=== PATIENT | male | born 1945 | race Two or more races ===

== ENCOUNTER 2017-09-20 07:58 | Inpatient (IN) | payer MEDICARE, OTHER ==
[2017-09-20] MEDS ORDERED: NS 0.9% 1000 ML* 2,000 ML IV ONE (08:13)
[2017-09-20] MEDS ORDERED: Ondansetron INJ* 2 MG/ML VIAL IV ONE (08:43)
[2017-09-20] MEDS ORDERED: LORazepam INJ* 2 MG/ML 1 ML VIAL IV PUSH ONE ×3 (08:43→16:35)
[2017-09-20 08:46] LABS: ABS Basophils 0 10^3/ul (0-0.2); ABS Eosinophils 0 10^3/ul (0-0.6); ABS Lymphocytes 0.7 10^3/ul (1.0-4.8); ABS Monocytes 1.6 10^3/ul (0-0.8); ABS Neutrophils 13.3 10^3/ul (1.5-7.7); ABS Nucleated RBC 0.01 10^3/ul; Eosinophil % 0 % (0-6); Hematocrit 37 % (42-52); Hemoglobin 12.6 g/dl (14.0-18.0); Lymphocyte % 4.7 % (25-47); Mean Corpuscular HGB Conc 34 g/dl (31-36); Mean Corpuscular Hemoglobin 29 pg (27-31); Mean Corpuscular Volume 86 fL (80-94); Nucleated Red Blood Cells % 0.1; Red Blood Count 4.31 10^6/ul (4.0-5.4); Red Cell Distribution Width 14 % (10.5-15); White Blood Count 15.7 10^3/ul (3.5-10.8)
[2017-09-20 08:58] LABS: EGFR Non-African American 39.7 (>60)
[2017-09-20] MEDS ORDERED: Magnesium Sulfate 1 GM IV* 1 GM/100 ML BAG IV ONE (09:35)
[2017-09-20] MEDS: KCL 10 MEQ/50 ML IVPREMIX* 10 MEQ/50 ML BAG IV SCH ×3 (10:35→14:36)
--- NOTE | 2017-09-20 10:41 | RAD ---
Indication: Weakness and fever. Comparison: No relevant prior exams available on the [facility] PACS for comparison. Technique: Upright AP 1000 hours Report: No pulmonary infiltrate, pleural effusion, or pneumothorax. The heart, pulmonary vasculature, and mediastinal contours are unremarkable. Negative for free air beneath the diaphragm. IMPRESSION: No evidence for acute intrathoracic disease.
[2017-09-20] MEDS ORDERED: NS 0.9% 1000 ML* 1,000 ML IV ONE (10:57)
[2017-09-20] MEDS ORDERED: Magnesium Sulf 4 GM/100 ML IV* 4,000 MG/100 ML BAG IVPB ONE (12:44)
[2017-09-20] MEDS ORDERED: Ondansetron INJ* 2 MG/ML VIAL IV PRN (13:07)
[2017-09-20] MEDS ORDERED: Diphenoxylat/Atrop 2.5-0.025M* 1 TAB PO PRN (14:04)
[2017-09-20] MEDS ORDERED: Oxybutynin XL TAB* 5 MG PO PRN (14:04)
[2017-09-20] MEDS ORDERED: Dextrose 50% Syringe 50 ML* 25 GM/50 ML SYRINGE IV PUSH PRN (14:05)
[2017-09-20 14:23] LABS: RBC Parasite Smear No Parasites Seen (No Parasite)
--- NOTE | 2017-09-20 14:54 | ED ---
Marco Bonner Tecjoon, scribed for Guillaume Lopez MD on 09/20/17 at 0853 . Complex/Multi-Sys Presentation - HPI Summary HPI Summary: This patient is a 72 year old BIBA to [facility] accompanied by with a chief complaint of general illness since 2 weeks ago. Patient states that he has nausea and vomiting and has completely lost his appetite. As a result, at time of exam, patient is dehydrated. The patient additionally reports overall bodyaches, weakness and constant hiccupping since last night. The pain is rated 3/10 in severity. Symptoms aggravated by nothing. Symptoms alleviated by nothing. 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 Patient denies abd pain specifically. Patient has a hx of diabetes and was not tested for malaria after their visit to [facility]. - History Of Current Complaint Chief Complaint: EDGeneral Hx Obtained From: Patient Onset/Duration: Gradual Onset, Still Present Timing: Constant Severity Currently: Mild Severity Initially: Mild Location: Pain At: - overall bodyache Aggravating Factor(s): nothing Alleviating Factor(s): nothing Associated Signs And Symptoms: Positive: Other - nausea, vomiting, bodyaches, weakness and constant hiccupping. Negative: Abdominal Pain - Allergies/Home Medications Allergies/Adverse Reactions: Allergies Allergy/AdvReac Type Severity Reaction Status Date / Time Benzalkonium Chloride Allergy Unknown Verified 09/20/17 08:07 [From Lumigan] Reaction Details Bimatoprost [From Lumigan] Allergy Unknown Verified 09/20/17 08:07 Reaction Details Sulfa Antibiotics Allergy Unknown Verified 09/20/17 08:07 Reaction Details Home Medications: Home Medications Ketoconazole 2 % CREAM (NF) [Nizoral 2% CREAM (NF)] 1 applic TOPICAL BID PRN 10/07 [History Confirmed 09/20/17] Psyllium SHELLY* [Metamucil SHELLY*] 1 packet PO DAILY 09/20/17 [History Confirmed 10/07] Rosuvastatin (NF) [Crestor (NF)] 20 mg PO DAILY 09/20/17 [History Confirmed 10/07] Tramadol HCl [Ultram] 50 mg PO Q6H PRN 09/20/17 [History Confirmed 09/20/17] glipiZIDE TAB* [Glucotrol TAB*] 5 mg PO DAILY 09/20/17 [History Confirmed ] metFORMIN* [Glucophage 850 MG TAB *] 850 mg PO BID 09/20/17 [History Confirmed 09/20/17] PMH/Surg Hx/FS Hx/Imm Hx Previously Healthy: No Endocrine/Hematology History: Reports: Hx Diabetes Opthamlomology History: Denies: Hx Legally Blind EENT History: Denies: Hx Deafness Psychiatric History: Reports: Hx Anxiety Infectious Disease History: No Infectious Disease History: Reports: Traveled Outside the [place] in Last 30 Days - [place] and [place] - Family History Known Family History: Positive: Hypertension, Diabetes - Social History Lives: With Family Alcohol Use: None Hx Substance Use: No Substance Use Type: Reports: None Hx Tobacco Use: No Smoking Status (MU): Never Smoked Tobacco Review of Systems Positive: Other - hiccuping. Negative: Fever Positive: Vomiting, Nausea. Negative: Abdominal Pain Positive: Myalgia - bodyaches Positive: Weakness All Other Systems Reviewed And Are Negative: Yes Physical Exam - Summary Physical Exam Summary: VITAL SIGNS: Reviewed. GENERAL: Patient is an elderly MALE who is lying in the stretcher. Patient is dehydrated. Patient is not in any acute respiratory distress. HEAD AND FACE: Normocephalic EYES: PERRLA, EOMI x 2. EARS: Hearing grossly intact. MOUTH: Oropharynx within normal limits. NECK: Supple, trachea is midline, no adenopathy, no JVD, no carotid bruit. CHEST: Symmetric, no tenderness at palpation LUNGS: Clear to auscultation bilaterally. No wheezing or crackles. CVS: Regular rate and rhythm, S1 and S2 present, no murmurs or gallops appreciated. ABDOMEN: Soft, non-tender. Bowel sounds are normal. No abdominal abnormal pulsations. EXTREMITIES: Full ROM in all major joints, no edema, no cyanosis or clubbing. NEURO: Alert and oriented x 3. No acute neurological deficits. Speech is normal and follows commands. SKIN: Dry and warm Triage Information Reviewed: Yes Vital Signs On Initial Exam: Initial Vitals Temp Pulse Resp BP Pulse Ox 99.0 F 125 23 115/81 95 09/20/17 08:03 09/20/17 08:03 09/20/17 08:03 09/20/17 08:03 09/20/17 08:03 Vital Signs Reviewed: Yes - Nancy Coma Scale Coma Scale Total: 15 Diagnostics - Vital Signs Vital Signs Temp Pulse Resp BP Pulse Ox 09/20/17 08:34 99.2 F 123 24 98/74 93 09/20/17 08:03 99.0 F 125 23 115/81 95 - Laboratory Lab Results: Lab Results 09/20/17 09/20/17 09/20/17 Range/Units 08:30 08:30 08:30 WBC 15.7 H (3.5-10.8) 10^3/ul RBC 4.31 (4.0-5.4) 10^6/ul Hgb 12.6 L (14.0-18.0) g/dl Hct 37 L (42-52) % MCV 86 (80-94) fL MCH 29 (27-31) pg MCHC 34 (31-36) g/dl RDW 14 (10.5-15) % Plt Count (150-450) 10^3/ul MPV [employer] Engine 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 Neut % (Auto) 84.8 H (38-83) % Lymph % (Auto) 4.7 L (25-47) % [place] % (Auto) 10.3 H (1-9) % Eos % (Auto) 0 (0-6) % Baso % (Auto) 0.2 (0-2) % Absolute Neuts (auto) 13.3 H (1.5-7.7) 10^3/ul Absolute Lymphs (auto) 0.7 L (1.0-4.8) 10^3/ul Absolute Monos (auto) 1.6 H (0-0.8) 10^3/ul Absolute Eos (auto) 0 (0-0.6) 10^3/ul Absolute Basos (auto) 0 (0-0.2) 10^3/ul Absolute Nucleated RBC 0.01 10^3/ul Nucleated RBC % 0.1 Smear Path Review Pending Sodium 127 L (133-145) mmol/L Potassium 3.2 L (3.5-5.0) mmol/L Chloride 88 L (101-111) mmol/L Carbon Dioxide 28 (22-32) mmol/L Anion Gap 11 (2-11) mmol/L BUN 24 (6-24) mg/dL Creatinine 1.70 H (0.67-1.17) mg/dL Est GFR ( Amer) 51.1 (>60) Est GFR (Non-Af Amer) 39.7 (>60) BUN/Creatinine Ratio 14.1 (8-20) Glucose 210 H (70-100) mg/dL Lactic Acid 1.7 (0.5-2.0) mmol/L Calcium 9.1 (8.6-10.3) mg/dL Magnesium 1.2 L (1.9-2.7) mg/dL Total Bilirubin 1.70 H (0.2-1.0) mg/dL AST 27 (13-39) U/L ALT 38 (7-52) U/L Alkaline Phosphatase 107 H (34-104) U/L Troponin I 0.04 H* (<0.04) ng/mL Total Protein 6.7 (6.4-8.9) g/dL Albumin 3.1 L (3.2-5.2) g/dL Globulin 3.6 (2-4) g/dL Albumin/Globulin Ratio 0.9 L (1-3) Blood Parasite Screen Pending Result Diagrams: 09/20/17 08:30 09/20/17 08:30 Lab Statement: Any lab studies that have been ordered have been reviewed, and results considered in the medical decision making process. - Radiology CXR Xray Interpretation: No Acute Changes - IMPRESSION: No evidence for acute intrathoracic disease. ED physician has reviewed this radiology report. Radiology Interpretation Completed By: Radiologist - EKG 08 Cardiac Rate: Tachycardia EKG Rhythm: Sinus Tachycardia - 115 BPM EKG Interpretation: Sinus tachycardia (115 BPM), no ST elevation. Complex Multi-Symp Course/Dx Course Of Treatment: This patient is a 72 year old BIBA to [facility] accompanied by with a chief complaint of general illness since 2 weeks ago. Patient states that he has nausea and vomiting and has completely lost his appetite. As a result, at time of exam, patient is dehydrated. The patient additionally reports overall bodyaches, weakness and constant hiccupping since last night. The pain is rated 3/10 in severity. Symptoms aggravated by nothing. Symptoms alleviated by nothing. 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 Patient denies abd pain specifically. Patient has a hx of diabetes and was not tested for malaria after their visit to [facility]. An EKG, taken 821, reveals sinus tachycardia (115 BPM), no ST elevation. CXR reveals, per radiologist, IMPRESSION: No evidence for acute intrathoracic disease. ED physician has reviewed this radiology report. Bloodwork Obtained. Malaria screening obtained. In the ED course the patient was given IVF for hydration since patient is severly dehydrated. He was given Ativan for hiccups. He was also given Zofran, Magnesium sulfate, Potassium chloride. Patient has lost 11 lbs in 10 days and still having intractable nause and unable to tolerate PO. We discussed patient care with Dr. Howard (Hospitalist) at 1122 and they agreed to admit the patient. Patient will be diagnosed with dehydration, renal insufficiency, intractable nausea, weight loss and will we admitted to the hospitalist. The patient is agreeable with this plan. - Diagnoses Differential Diagnoses/HQI/PQRI: Urinary Tract Infection Provider Diagnoses: Dehydration, Weight loss, Intractable nausea and vomiting, Renal insufficiency - Physician Notifications Discussed Care Of Patient With: Heather Howard - Hospitalist Time Discussed With Above Provider: 11:22 - We discussed patient care with Dr. Howard (Hospitalist) at 1122 and they agreed to admit the patient. Discharge - Discharge Plan Condition: Stable Disposition: ADMITTED TO [facility] documentation as recorded by the Marco marrero Tecjoon accurately reflects the service I personally performed and the decisions made by John linares Walter, MD.
[2017-09-20] MEDS ORDERED: Potassium Chlor TAB* 20 MEQ TAB.ER PO ONE (15:00)
[2017-09-20] MEDS: NS 0.9% 1000 ML* 1,000 ML IV SCH ×2 (16:50→22:35)
[2017-09-20] MEDS: Heparin VIAL(*) 5000 UNITS/ML VIAL (FIVE THOUSAND) SUBCUT SCH ×2 (17:43→20:37)
[2017-09-20] MEDS: Insulin LISPRO* 1 UNITS UNIT SUBCUT SCH (17:50)
[2017-09-20 19:05] LABS: Urine Appearance Clear; Urine Blood 1+ (Negative); Urine Color Yellow; Urine Ketones Negative (Negative); Urine Protein Negative (Negative); Urine Specific Gravity 1.005 (1.010-1.030); Urine Urobilinogen Positive (Negative)
--- NOTE | 2017-09-20 19:32 | RAD ---
INDICATION: Dehydration. Elevated troponin. Clinical concern for potential liver abscess. COMPARISON: December 13, 2008 RIGHT upper quadrant ultrasound. TECHNIQUE: Multidetector CT images were obtained from the lung bases to the ischial tuberosities. Evaluation of the viscera is limited without IV contrast. Multiplanar reformation. REPORT: Small calcified granuloma at the LEFT lung base. Minimal bibasilar dependent atelectasis. Post cholecystectomy. Negative for biliary dilatation. No CT abnormality of the unenhanced liver, pancreas, spleen. Negative for CT abnormality of the upper GI, small bowel, or medially extending appendix. Moderate colonic diverticulosis primarily involving the sigmoid colon without findings of diverticulitis. Negative for ascites, free air, hernias. Normal adrenal glands. Few small renal cortical cysts with dominant 2 cm cyst lower pole of the LEFT kidney. No suspicious focal renal lesions, urolithiasis, or hydronephrosis. No abnormality along the course of the nondilated ureters or distended urinary bladder. Unremarkable visualized male urogenital structures. Negative for lymphadenopathy. Mild atherosclerotic calcification of normal diameter abdominal aorta and iliac arteries. 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 Fusiform aneurysm of the celiac axis beginning approximate 0.5 cm beyond the ostium measuring up to 1.1 cm diameter. Negative for retroperitoneal hematoma. Negative for suspicious osseous lesions. IMPRESSION: 1. No evidence for hepatic abscess within limits of noncontrast CT. 2. Post cholecystectomy. 3. Colonic diverticulosis without findings of diverticulitis. 4. Negative for obstructive uropathy. 5. 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 Fusiform aneurysm of the celiac axis beginning approximate 0.5 cm beyond the ostium measuring up to 1.1 cm diameter. Negative for retroperitoneal hematoma.
[2017-09-20] MEDS: LORazepam TAB(*) 1 MG PO PRN (20:03)
--- NOTE | 2017-09-20 20:04 | HP ---
CC: Dr. Geraldine Jaeger. * HISTORY AND PHYSICAL: DATE OF ADMISSION: 09/20/17 PRIMARY CARE PROVIDER: Dr. Geraldine Jaeger. ATTENDING PHYSICIAN: Heather Howard DO * (dictated by Genie Khan NP). CHIEF COMPLAINT: General illness for approximately 2 weeks since returning from a trip to [facility], [employer] and [facility]. HISTORY OF PRESENT ILLNESS: Mr. West is a 72-year-old male with past medical history significant for diabetes mellitus, anxiety and IBS who presents to the emergency room with complaints of 2 weeks of illness. The patient reports that he returned from his trip and was initially feeling well for the first week, he returned to work. After the first week, he started developing fevers and not feeling well. He was taking Advil for his fevers. He reports seeing his primary care provider and then again seeing his primary care provider on 09/17/17 where he was told he was dehydrated and to try to get himself hydrated at home. The patient reports flu-like symptoms that have worsened since he saw his primary care provider on 09/17/17 and he reports hiccups starting last night that have not stopped. He reports generalized body aches, loss of appetite, urinary incontinence last evening, fevers, anorexia. He denies any chest pain, shortness of breath, abdominal pain. He reports nausea, vomiting. He reports not being able to keep anything down. The patient tried to take his lorazepam to see if this helped with his symptoms and when it did not, he decided to present to the emergency room for further evaluation. While in the emergency room, the patient received Zofran, 2 L normal saline, Ativan and one of IV potassium. He had labs remarkable for hyponatremia with a sodium of 127. He also was found to have hypokalemia with a potassium of 3.2, hypomagnesium with a magnesium of 1.2. Also, he was also noted to have elevated LFTs and slightly elevated troponin of 0.04. He had an EKG showing sinus tachycardia. Chest x-ray showing no acute findings. The hospitalist were asked to evaluate the patient for admission. PAST MEDICAL HISTORY: 1. Diabetes mellitus. 2. Anxiety. 3. IBS. 4. Hypertension. 5. Hyperlipidemia. 6. Glaucoma. 7. Chronic back pain. 8. GERD. PAST SURGICAL HISTORY: 1. Status post cholecystectomy. 2. Status post bilateral cataract extractions. HOME MEDICATIONS: Include: 1. Nexium 40 mg oral once daily. 2. Losartan 100 mg oral daily. 3. Metformin 850 mg oral twice daily. 4. Glipizide 5 mg oral daily. 5. Indapamide 1.25 mg oral daily. 6. Crestor 20 mg oral daily. 7. Lorazepam 1 mg oral 3 times daily as needed for anxiety. 8. Brimonidine Ophthalmic drops 1 drop to both eyes 3 times daily. 9. Xyzal 5 mg oral daily as needed for allergies. 10. Ultram 50 mg oral every 6 hours as needed for back pain. 11. Ketoconazole cream applied twice daily as needed for rash. 12. Lomotil 1 tablet up to 4 times daily as needed for bowel cramping. 13. Detrol LA 2 mg oral daily for bladder frequency as needed. 14. Metamucil 1 packet oral daily. ALLERGIES: SULFA, LUMIGAN. FAMILY HISTORY: The patient's father passed at age 84 from heart failure, maternal grandmother and maternal uncle had a history of diabetes and the patient has a cousin with a history of colon cancer. SOCIAL HISTORY: The patient denies tobacco, recreational drug use. He occasionally drinks alcoholic beverages. He is and lives with his . His , José Miguel West, will be his surrogate decision make in the event he is unable to make decisions for himself. REVIEW OF SYSTEMS: I performed a 14-point review of systems. All the pertinent positives and negatives are mentioned in history of present illness. The remaining review of systems are negative. PHYSICAL EXAMINATION GENERAL APPEARANCE: The patient is alert, pleasant, appears to be in no acute distress. VITAL SIGNS: Temperature 99.0, heart rate 100, respiratory rate 19, O2 sat 100 % on room air. Blood pressure 103/67, HEENT: Normocephalic, atraumatic. Pupils are equal and reactive to light. Extraocular movements are intact. The patient has dry mucous membranes. RESPIRATORY: There is no accessory muscle use. Lungs are clear to auscultation bilateral. CARDIOVASCULAR: Regular rate and rhythm. S1, S2 present. There are no murmurs, rubs or gallops heard. ABDOMEN: Soft, nontender, nondistended. Bowel sounds present x4. There are no abnormalities noted with palpation. EXTREMITIES: There is no lower extremity edema. DP and PT pulses are 2+ and symmetric. MUSCULOSKELETAL: There is no clubbing or cyanosis noted. The patient exhibits good strength in all extremities. NEUROLOGIC: The patient is alert and oriented x4. Cranial nerves II through XII are grossly intact. PSYCHOLOGICAL: The patient is calm and cooperative. SKIN: There are no rashes or abnormalities seen. DIAGNOSTIC STUDIES/LABORATORY DATA: Sodium 127, potassium 3.2, chloride 88, CO2 28, BUN 24, creatinine 1.70, glucose 112, magnesium 1.2, alk phos 107, total bilirubin 1.70, troponin 0.04. White blood cell count 15.7, hemoglobin 12.6, hematocrit 37. EKG from today shows sinus tachycardia with rate of 115, similar to previous EKG from 01/15/09 except at that time he was in sinus rhythm. Chest x-ray from today: No evidence for acute intrathoracic disease. IMPRESSION: Mr. West is a 72-year-old male with past medical history significant for diabetes mellitus, anxiety, IBS, hypertension, hyperlipidemia and glaucoma who presents to the emergency room with 2 weeks of generalized illness. He will be admitted as an observation for elevated troponin and dehydration. 1. General illness: The patient has recently traveled abroad. He has a malaria screening pending. He did take the malaria prophylaxis during his trip. For now, we are going to give him IV hydration and supportive care. We will ask Dr. Garza with Infectious Disease to consult on the patient. We will also check a UA, although the patient often has urinary frequency he reports developing some urinary urgency and incontinence. We will rule out urinary tract infection. We will also start him empirically on IV ceftriaxone for possible Typhoid. 2. Acute kidney injury: I believe this is secondary to dehydration in the setting of his acute illness. We will give him IV hydration and recheck his labs in the morning. We will check a UA to make sure he does not have a urinary tract infection. 3. Electrolyte abnormalities: The patient has hypomagnesia and hypokalemia. We will give him electrolyte replacements and recheck his labs in the morning. 4. Elevated troponin: I suspect this is secondary to demand ischemia. He denies any chest pain. We will trend his troponins and monitor him on telemetry. 5. Elevated LFTs. We will continue to follow. 6. Hypertension: We will hold the patient's losartan and Indapamide due to his hypotension at this point. 7. Anxiety: The patient will be continued on his home p.r.n. lorazepam. 8. Hyperlipidemia: We will continue the patient on his home statin. 9. Diabetes mellitus: We will hold the patient's oral antidiabetics metformin and glipizide. We will check glucoses a.c. and h.s. and do lispro sliding scale coverage with meals. He will also be on consistent carbohydrate diet. 10. Gastroesophageal reflux disease: The patient will be continued on his home PPI. 11. Glaucoma: The patient will be continued on his home brimonidine eye drops. 12. Chronic pain: The patient will be continued on tramadol. 13. Irritable bowel syndrome: The patient will be continued on his Lomotil and Metamucil. 14. Fluids, electrolytes, and nutrition: The patient will have consistent carbohydrate diet. 15. Code status: Full code. 16. DVT prophylaxis: The patient is at moderate risk and will have subcu heparin. 17. Disposition: Observation. TIME SPENT: Time for this admission was approximately 60 minutes, greater than half of that was spent with the patient discussing medications, past medical history, the events leading up to his arrival today, performing a physical examination. The case has been reviewed with the attending Dr. Howard, who agrees with the plan of care. Reviewed by PIPPA NICOLE 09/21/172021 [id number]/[facility] #: [id number] TRAY
[2017-09-20] MEDS: NF:Brimonidine P 0.15%(NF) OPH SOL 5 ML BTL BOTH EYES SCH (20:05)
[2017-09-20] MEDS: cefTRIAXone(*) 1 GM in NS 0.9% 50 ML* 50 ML IVPB SCH (22:37)
[2017-09-21] MEDS: Heparin VIAL(*) 5000 UNITS/ML VIAL (FIVE THOUSAND) SUBCUT SCH ×3 (05:30→21:02)
[2017-09-21 05:36] LABS: ABS Basophils 0.1 10^3/ul (0-0.2); ABS Eosinophils 0 10^3/ul (0-0.6); ABS Lymphocytes 0.6 10^3/ul (1.0-4.8); ABS Monocytes 0.9 10^3/ul (0-0.8); ABS Neutrophils 9.6 10^3/ul (1.5-7.7); ABS Nucleated RBC 0 10^3/ul; Eosinophil % 0.4 % (0-6); Hematocrit 35 % (42-52); Hemoglobin 11.7 g/dl (14.0-18.0); Lymphocyte % 5.5 % (25-47); Mean Corpuscular HGB Conc 33 g/dl (31-36); Mean Corpuscular Hemoglobin 29 pg (27-31); Mean Corpuscular Volume 86 fL (80-94); Mean Platelet Volume 8 um3 (7.4-10.4); Nucleated Red Blood Cells % 0; Platelet Count 242 10^3/ul (150-450); Red Blood Count 4.09 10^6/ul (4.0-5.4); Red Cell Distribution Width 14 % (10.5-15); White Blood Count 11.2 10^3/ul (3.5-10.8)
[2017-09-21 05:49] LABS: EGFR Non-African American 57.7 (>60)
[2017-09-21 06:22] LABS: RBC Parasite Smear No Parasites Seen (No Parasite)
[2017-09-21] MEDS ORDERED: Potassium Chlor TAB* 20 MEQ TAB.ER PO ONE (07:20)
[2017-09-21] MEDS: LORazepam TAB(*) 1 MG PO PRN ×2 (07:24→13:49)
[2017-09-21] MEDS: Insulin LISPRO* 1 UNITS UNIT SUBCUT SCH ×3 (07:57→16:56)
[2017-09-21] MEDS ORDERED: Losartan TAB* 25 MG PO SCH (09:00)
[2017-09-21] MEDS ORDERED: Indapamide TAB* 2.5 MG PO SCH (09:00)
[2017-09-21] MEDS: Omeprazole CAP* 20 MG PO SCH (09:13)
[2017-09-21] MEDS: NS 0.9% 1000 ML* 1,000 ML IV SCH ×2 (09:13→21:01)
[2017-09-21] MEDS: Psyllium PAK PO SCH (09:14)
[2017-09-21] MEDS: NF:Brimonidine P 0.15%(NF) OPH SOL 5 ML BTL BOTH EYES SCH ×2 (09:14→14:05)
[2017-09-21] MEDS: Atorvastatin* 40 MG TAB PO SCH (09:14)
[2017-09-21] MEDS ORDERED: LORazepam INJ* 2 MG/ML 1 ML VIAL IV PUSH ONE (09:51)
[2017-09-21] MEDS: chlorproMAZINE TAB* 25 MG PO PRN (15:04)
--- NOTE | 2017-09-21 20:07 | RAD ---
INDICATION: Intractable hiccups. Dehydration. Elevated troponin. COMPARISON: September 20, 2017 CT abdomen. TECHNIQUE: Multidetector CT images were obtained from the lung apices to the upper abdomen. Evaluation of the viscera is limited without IV contrast. REPORT: Negative for diaphragmatic elevation. Small calcified granuloma at the LEFT lung base. Small bilateral dependent pleural effusions with proportional compressive atelectasis. Negative for thoracic lymphadenopathy, cardiomegaly, pericardial effusion. Small hiatal hernia. Limited images through the upper abdomen are remarkable for prior cholecystectomy. Negative for suspicious thoracic osseous lesions. IMPRESSION: Small bilateral dependent pleural effusions with mild proportional basilar atelectasis.
[2017-09-21] MEDS ORDERED: LATANOPROST 0.005% BOTH EYES SCH (21:00)
[2017-09-21] MEDS: cefTRIAXone(*) 1 GM in NS 0.9% 50 ML* 50 ML IVPB SCH (21:01)
--- NOTE | 2017-09-21 21:41 | PN ---
Subjective Interval History: Patient states he continues to feel poorly, with this mainly being driven by his hiccups and inability to adequately rest. Patient's states that he has had several episodes of similar bouts of hiccups through their 45 year relationship. Also, patient states that he additionally took 5 days of Cipro for Traveller's Diarrhea in [place] which resolved his diarrhea. Patient has a history of recurrent UTI. Patient has lost 10 pounds since he went on his trip. Patient denies current F/C, N/V, abdominal pain, CP, SOB, or other pain. Family History: Unchanged from Admission Social History: Unchanged from Admission Past Medical History: Unchanged from Admission Objective Active Medications: Atorvastatin Calcium (Lipitor*) 40 mg PO DAILY [facility] Last Admin: 09/21/17 09:14 Dose: 40 mg Chlorpromazine HCl (Thorazine Tab*) 25 mg PO TID PRN PRN Reason: HICCUPS Last Admin: 09/21/17 15:04 Dose: 25 mg Dextrose (D50w Syringe 50 Ml*) 12.5 gm IV PUSH .FOR FS < 60 - SS PRN PRN Reason: FS < 60 Last Admin: 09/20/17 21:11 Dose: 12.5 gm Diphenoxylate HCl/Atropine (Lomotil Tab*) 1 tab PO QID PRN PRN Reason: DIARRHEA Heparin Sodium (Porcine) (Heparin Vial(*)) 5,000 units SUBCUT Q8HR [facility] Last Admin: 09/21/17 21:02 Dose: 5,000 units Sodium Chloride (Ns 0.9% 1000 Ml*) 1,000 mls @ 100 mls/hr IV PER RATE [facility] Last Admin: 09/21/17 21:01 Dose: 100 mls/hr Ceftriaxone Sodium 1 gm/ (Sodium Chloride) 50 mls @ 200 mls/hr IVPB Q24H [facility] Last Admin: 09/21/17 21:01 Dose: 200 mls/hr Insulin Human Lispro (Humalog*) 0 - 5 units SUBCUT AC [facility] PRN Reason: Protocol Last Admin: 09/21/17 16:56 Dose: Not Given Lorazepam (Ativan Inj*) 0.5 mg IV PUSH Q4H PRN PRN Reason: ANXIETY Pto Med (Latanoprost (0.005%* 1 Drop)) 1 drop BOTH EYES BEDTIME [facility] Last Admin: 09/21/17 21:01 Dose: 1 drop Omeprazole (Prilosec Cap*) 20 mg PO DAILY [facility] PRN Reason: Protocol Last Admin: 09/21/17 09:13 Dose: 20 mg Ondansetron HCl (Zofran Inj*) 4 mg IV Q6H PRN PRN Reason: NAUSEA Oxybutynin Chloride (Ditropan Xl Tab*) 5 mg PO DAILY PRN; Protocol PRN Reason: Urinary frequency Psyllium Hydrophilic Mucilloid (Metamucil Sergio*) 1 pkt PO DAILY [facility] Last Admin: 09/21/17 09:14 Dose: 1 pkt Tramadol HCl (Ultram*) 50 mg PO Q6H PRN PRN Reason: PAIN Vital Signs - 8 hr 09/21/17 09/21/17 19:12 19:14 Temperature 98.1 F Pulse Rate 102 Respiratory 18 16 Rate Blood Pressure 102/63 (mmHg) O2 Sat by Pulse 98 Oximetry Oxygen Devices in Use Now: None Appearance: Patient is a 72yo male who appears stated age and is sitting in the bed in moderate distress from hiccups. Eyes: No Scleral Icterus, PERRLA Ears/Nose/Mouth/Throat: NL Teeth, Lips, Gums, Clear Oropharnyx, Mucous Membranes Moist Neck: NL Appearance and Movements; NL JVP, Trachea Midline Respiratory: Symmetrical Chest Expansion and Respiratory Effort, Clear to Auscultation Cardiovascular: NL Sounds; No Murmurs; No JVD, RRR, No Edema Abdominal: NL Sounds; No Tenderness; No Distention, No Hepatosplenomegaly, - - No suprapubic or CVA tenderness. Lymphatic: No Cervical Adenopathy Extremities: No Edema Skin: No Rash or Ulcers, No Nodules or Sclerosis Neurological: Alert and Oriented x 3, NL Sensation, NL Muscle Strength and Tone Result Diagrams: 09/21/17 05:27 09/21/17 05:27 Additional Lab and Data: Lab Results Assess/Plan/Problems-Billing Assessment: Patient is a 72yo male with a PMH significant for recurrent UTI, Urge urinary incontinence, DMII, HTN, HLD, who recently returned from a trip to [facility] and has general illness with 10 pound weight loss, intractable hiccups, and a UTI who is being treated with Ceftriaxone. - Patient Problems (1) Illness Current Visit: Yes Status: Acute Code(s): R69 - ILLNESS, UNSPECIFIED SNOMED Code(s): 57666508 Comment: Appreciate ID consult. No obvious cause of illness. Differential includes Typhoid, Dengue, Malaria. Will monitor labs, check for HIV, Repeat blood smear and monitor. Will continue on Ceftriaxone for UTI. (2) Hiccups Current Visit: Yes Status: Acute Code(s): R06.6 - HICCOUGH SNOMED Code(s) : 63363171 Comment: Intractable and causing significant distress. Ativan and Thorazine ordered with minimal effect. Will continue to monitor. CT of the chest negative for diaphragmatic irritation. (3) Diabetes Current Visit: Yes Status: Acute Code(s): E11.9 - TYPE 2 DIABETES MELLITUS WITHOUT COMPLICATIONS SNOMED Code(s): 36232911 Comment: Lispro SSI, Moderately well controlled FSBG. Will add Basal insulin based on todays results and AM result. (4) HLD (hyperlipidemia) Current Visit: Yes Status: Acute Code(s): E78.5 - HYPERLIPIDEMIA, UNSPECIFIED SNOMED Code(s): 21438124 Comment: Continue Lipitor (5) DVT prophylaxis Current Visit: Yes Status: Acute Code(s): TCV0578 - SNOMED Code(s): 314334126 Comment: Heparin SubQ (6) Full code status Current Visit: Yes Status: Acute Code(s): Z78.9 - OTHER SPECIFIED HEALTH STATUS SNOMED Code(s): 110388676 Status and Disposition: Patient is admitted inpatient for unknown illness.
--- NOTE | 2017-09-21 23:36 | CONS ---
CONSULTATION REPORT: DATE OF CONSULT: 09/21/17 REQUESTING PROVIDER: Heather Howard DO CONSULTING SERVICE: Infectious Disease. REASON FOR CONSULTATION: Weight loss and fever after a trip. IMPRESSION: 1. Couple of weeks in [place], [place], and [place] and then a couple of weeks later, onset of fever, anorexia, 10-pound weight loss, myalgia, malaise, here with leukocytosis, which is improved overnight. Mild acute kidney injury. Two negative malaria screens. Positive urinalysis and greater than 100,000 colonies E. coli in the urine culture. Possibly he has a prostatitis, though no particular urinary symptoms. Malaria seems less likely with 2 negative smears so far. No evidence of hemolysis. No thrombocytopenia. Dengue and other flavivirus is less likely with leukocytosis instead of leukopenia and thrombocytopenia. Typhoid fever seems less likely with so far negative blood cultures. 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 Noninfectious and unrelated to his travel including malignancy is a consideration. Other infections including liver abscess, less likely with a negative CT of the abdomen and pelvis. HIV is a consideration, though he does not endorse risk factors. 2. Allergy to SULFA. 3. Irritable bowel syndrome. 4. Diabetes. 5. Three to four days of hiccups, question thoracic pathology. RECOMMENDATIONS: HIV antibody, CT of the chest to look for lymphadenopathy. Continue ceftriaxone and IV fluids. Follow his white count and his kidney function. Add another malaria smear for tomorrow. 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 He stayed in hotels and took [place] while he was there. He does think he missed a few days, but does not recall any mosquito bites. He took malaria prophylaxis intermittently while travelling and did take it for 2 days ago when he got back. After that trip, he was in [facility] for a couple of days, stayed in high-end hotels, traveled back to [place], then to the [place]. While he was there, he had some diarrhea, took Cipro with some improvement. By the time he got back to the [place], he felt like his usual self except for the usual jet lag. Then another week and a half later in mid August, he started to develop chills, fevers, malaise, diffuse myalgia , appetite dropped off. He has not eaten much since that time and has lost 10 or 11 pounds. He had progressive symptoms including of aches, loss of appetite and some urinary incontinence, has vomited and some nausea, so he came to the ER on 09/20/17. White count was 15,000, his creatinine 1.7, ALT was normal at 38. I discussed the case with Dr. Howard. Recommended the CT abdomen and pelvis to look for occult abscess that was negative. Malaria smears have been negative. Blood cultures negative. Urine cultures growing greater than 100,000 colonies of E. coli. His white count is down to 11 today. He has had no fevers overnight. He still feels miserable, his appetite is still off. He has no pain. He has had 3 days of hiccups. No diarrhea. Has not been ill like this in the past. On his trip, he did not have much time outdoors, no mosquito bites that he knew of, [place] PAST MEDICAL HISTORY: 1. Diabetes. 2. Anxiety. 3. Irritable bowel syndrome. 4. Hypertension. 5. Hyperlipidemia. 6. Glaucoma. 7. Back pain. 8. Gastroesophageal reflux disease. 9. Status post cholecystectomy. 10. Status post bilateral cataract extraction. MEDICATIONS: 1. Lipitor. 2. Chlorpromazine. 3. Heparin subcutaneous injection. 4. Magnesium. 5. Oxybutynin. 6. Potassium. 7. Psyllium. 8. Ceftriaxone 1 g a day. ALLERGIES: SULFA and LUMIGAN. FAMILY HISTORY: No recurrent infections. SOCIAL HISTORY: Lives in [place] with his . No sick contacts. Travel as above. REVIEW OF SYSTEMS: All negative except as noted above to a 14-point review of systems. PHYSICAL EXAM: Vital Signs: Temperature 36.6, heart rate 90, respiratory rate 20, blood pressure 93/69, O2 sat 95% on room air. General: He is awake, not in distress, appears ill. HEENT: There is no conjunctival hemorrhage. Oropharynx, a couple of plaques on his posterior tongue. Neck is supple. Lymph Nodes: There is no cervical, supraclavicular, inguinal, axillary or epitrochlear lymphadenopathy. Heart is regular and tachycardic without murmurs. Lungs: Clear to auscultation bilaterally. Abdomen: Soft, nontender, and nondistended without hepatosplenomegaly. Skin: There is no rash or splinter hemorrhages. Musculoskeletal: There is no spine tenderness to palpation or joint synovitis. LABORATORY DATA: White blood cell count 11, hemoglobin 11.7, platelets 242, 000. Creatinine is 1.2. AST 48. Please see impressions and recommendations outlined above, which I have discussed with BASSEM Sin. Thank you for asking me to see Mr. West in consultation. [id number]/[facility] #: [id number] [facility]
[2017-09-22] MEDS: Heparin VIAL(*) 5000 UNITS/ML VIAL (FIVE THOUSAND) SUBCUT SCH ×3 (05:21→21:17)
[2017-09-22 05:41] LABS: ABS Basophils 0 10^3/ul (0-0.2); ABS Eosinophils 0.2 10^3/ul (0-0.6); ABS Lymphocytes 0.8 10^3/ul (1.0-4.8); ABS Monocytes 0.7 10^3/ul (0-0.8); ABS Neutrophils 6.4 10^3/ul (1.5-7.7); ABS Nucleated RBC 0 10^3/ul; Eosinophil % 2.3 % (0-6); Hematocrit 33 % (42-52); Hemoglobin 11.3 g/dl (14.0-18.0); Lymphocyte % 10.1 % (25-47); Mean Corpuscular HGB Conc 34 g/dl (31-36); Mean Corpuscular Hemoglobin 30 pg (27-31); Mean Corpuscular Volume 86 fL (80-94); Mean Platelet Volume 8 um3 (7.4-10.4); Nucleated Red Blood Cells % 0; Platelet Count 225 10^3/ul (150-450); Red Blood Count 3.84 10^6/ul (4.0-5.4); Red Cell Distribution Width 14 % (10.5-15); White Blood Count 8.1 10^3/ul (3.5-10.8)
[2017-09-22 05:56] LABS: EGFR Non-African American 68.5 (>60)
[2017-09-22 06:35] LABS: RBC Parasite Smear No Parasites Seen (No Parasite)
[2017-09-22] MEDS ORDERED: Potassium Chlor TAB* 20 MEQ TAB.ER PO ONE (06:55)
[2017-09-22] MEDS ORDERED: Magnesium Sulfate IV* 3 GM in NS 0.9% 100 ML* 100 ML IVPB ONE (06:55)
[2017-09-22] MEDS: Insulin LISPRO* 1 UNITS UNIT SUBCUT SCH ×4 (07:32→22:21)
[2017-09-22] MEDS ORDERED: NS 0.9% 100 ML* 100 ML ONE (08:42)
[2017-09-22] MEDS: NS 0.9% 1000 ML* 1,000 ML IV SCH ×2 (08:52→21:34)
[2017-09-22] MEDS: Psyllium PAK PO SCH (08:59)
[2017-09-22] MEDS: Atorvastatin* 40 MG TAB PO SCH (09:00)
[2017-09-22] MEDS ORDERED: Meropenem 1 GM PREMIX(*) 1 GM/50 ML BAG IV SCH (09:00)
[2017-09-22] MEDS: Omeprazole CAP* 20 MG PO SCH (09:00)
[2017-09-22] MEDS: chlorproMAZINE TAB* 25 MG PO PRN ×3 (09:22→18:01)
[2017-09-22] MEDS: Meropenem 1 GM PREMIX(*) 1 GM/50 ML BAG IV SCH ×2 (12:15→21:15)
--- NOTE | 2017-09-22 17:01 | PN ---
Subjective Date of Service: 09/22/17 Interval History: Patient persistently fatigued, but increased PO intake. Still feels very dry. Decreased hiccups on Thorazine and Ativan. Many questions about treatment and prognosis from patient and . Answered to their satisfaction. Denies F/C, N/V , Abdominal Pain, Diarrhea, dizziness, or other pain. Family History: Unchanged from Admission Social History: Unchanged from Admission Past Medical History: Unchanged from Admission Objective Active Medications: Atorvastatin Calcium (Lipitor*) 40 mg PO DAILY [facility] Last Admin: 09/22/17 09:00 Dose: 40 mg Chlorpromazine HCl (Thorazine Tab*) 25 mg PO TID PRN PRN Reason: HICCUPS Last Admin: 09/22/17 12:19 Dose: 25 mg Dextrose (D50w Syringe 50 Ml*) 12.5 gm IV PUSH .FOR FS < 60 - SS PRN PRN Reason: FS < 60 Last Admin: 09/20/17 21:11 Dose: 12.5 gm Diphenoxylate HCl/Atropine (Lomotil Tab*) 1 tab PO QID PRN PRN Reason: DIARRHEA Heparin Sodium (Porcine) (Heparin Vial(*)) 5,000 units SUBCUT Q8HR [facility] Last Admin: 09/22/17 14:19 Dose: Not Given Sodium Chloride (Ns 0.9% 1000 Ml*) 1,000 mls @ 125 mls/hr IV PER RATE [facility] Meropenem (Merrem 1 Gm Premix(*)) 1 gm in 50 mls @ 100 mls/hr IV Q8HR@0400,1200 ,2000 [facility] Last Admin: 09/22/17 12:15 Dose: 100 mls/hr Insulin Human Lispro (Humalog*) 0 - 5 units SUBCUT AC [facility] PRN Reason: Protocol Last Admin: 09/22/17 16:52 Dose: 1 unit Latanoprost (Xalatan 0.005%*) 1 drop BOTH EYES BEDTIME [facility] Lorazepam (Ativan Inj*) 0.5 mg IV PUSH Q4H PRN PRN Reason: ANXIETY Omeprazole (Prilosec Cap*) 20 mg PO DAILY [facility] PRN Reason: Protocol Last Admin: 09/22/17 09:00 Dose: 20 mg Ondansetron HCl (Zofran Inj*) 4 mg IV Q6H PRN PRN Reason: NAUSEA Oxybutynin Chloride (Ditropan Xl Tab*) 5 mg PO DAILY PRN; Protocol PRN Reason: Urinary frequency Psyllium Hydrophilic Mucilloid (Metamucil Sergio*) 1 pkt PO DAILY [facility] Last Admin: 09/22/17 08:59 Dose: 1 pkt Tramadol HCl (Ultram*) 50 mg PO Q6H PRN PRN Reason: PAIN Vital Signs - 8 hr 09/22/17 09/22/17 11:38 15:20 Temperature 97.9 F 97.8 F Pulse Rate 103 113 Respiratory 16 20 Rate Blood Pressure 112/74 110/70 (mmHg) O2 Sat by Pulse 97 95 Oximetry Oxygen Devices in Use Now: None Appearance: Patient is a 72yo male who appears stated age and is sitting in the bed in moderate distress. Eyes: No Scleral Icterus, PERRLA Ears/Nose/Mouth/Throat: NL Teeth, Lips, Gums, Clear Oropharnyx, - - Chapped lips and dry mucous membranes. Neck: NL Appearance and Movements; NL JVP, Trachea Midline Respiratory: Symmetrical Chest Expansion and Respiratory Effort, Clear to Auscultation Cardiovascular: NL Sounds; No Murmurs; No JVD, RRR, No Edema Abdominal: NL Sounds; No Tenderness; No Distention, No Hepatosplenomegaly Lymphatic: No Cervical Adenopathy Extremities: No Edema, No Clubbing, Cyanosis Skin: No Rash or Ulcers, No Nodules or Sclerosis Neurological: Alert and Oriented x 3, NL Sensation, NL Muscle Strength and Tone , - - CN II-XII intact. Result Diagrams: 09/22/17 05:18 09/22/17 05:18 Additional Lab and Data: Lab Results Microbiology and Other Data: Microbiology 09/22/17 14:00 Stool Gross Appearance - Final Stool Assess/Plan/Problems-Billing Assessment: Patient is a 72yo male with a PMH significant for recurrent UTI, Urge urinary incontinence, DMII, HTN, HLD, who recently returned from a trip to [facility] and has general illness with 10 pound weight loss, intractable hiccups, and a UTI who is being treated with Meropenum for ESBL. - Patient Problems (1) Illness Current Visit: Yes Status: Acute Code(s): R69 - ILLNESS, UNSPECIFIED SNOMED Code(s): 83414989 Comment: Appreciate ID consult. No obvious cause of illness. Leukocytosis improved. Differential includes Typhoid, Dengue, Malaria. Will monitor labs, HIV negative , Blood Smear x3 Negative. ESBL UTI Grew in Urine, susceptible only to Meropenum and Gentamycin. Will monitor for improvement. (2) Hiccups Current Visit: Yes Status: Acute Code(s): R06.6 - HICCOUGH SNOMED Code(s) : 07796662 Comment: Intractable and causing significant distress. Ativan and Thorazine ordered with equivocal effect. Will continue to monitor. CT of the chest negative for diaphragmatic irritation. (3) Diabetes Current Visit: Yes Status: Acute Code(s): E11.9 - TYPE 2 DIABETES MELLITUS WITHOUT COMPLICATIONS SNOMED Code(s): 37814539 Comment: Lispro SSI, Moderately well controlled FSBG. well controlled AM glucose, basal insulin not indicated at this time. (4) HLD (hyperlipidemia) Current Visit: Yes Status: Acute Code(s): E78.5 - HYPERLIPIDEMIA, UNSPECIFIED SNOMED Code(s): 90803717 Comment: Continue Lipitor (5) DVT prophylaxis Current Visit: Yes Status: Acute Code(s): OVN2228 - SNOMED Code(s): 870193296 Comment: Heparin SubQ (6) Full code status Current Visit: Yes Status: Acute Code(s): Z78.9 - OTHER SPECIFIED HEALTH STATUS SNOMED Code(s): 330855168 Status and Disposition: Patient is admitted inpatient for unknown illness and ESBL UTI on Meropenum.
[2017-09-22] MEDS: LATANOPROST 0.005% BOTH EYES SCH (21:20)
[2017-09-22] MEDS: traMADol TAB* 50 MG PO PRN (21:55)
[2017-09-23] MEDS: Meropenem 1 GM PREMIX(*) 1 GM/50 ML BAG IV SCH ×3 (04:10→21:03)
[2017-09-23] MEDS: chlorproMAZINE TAB* 25 MG PO PRN ×3 (04:14→22:17)
[2017-09-23] MEDS: Heparin VIAL(*) 5000 UNITS/ML VIAL (FIVE THOUSAND) SUBCUT SCH ×3 (05:54→22:20)
[2017-09-23 06:31] LABS: ABS Basophils 0 10^3/ul (0-0.2); ABS Eosinophils 0.2 10^3/ul (0-0.6); ABS Lymphocytes 0.6 10^3/ul (1.0-4.8); ABS Monocytes 0.6 10^3/ul (0-0.8); ABS Neutrophils 5.8 10^3/ul (1.5-7.7); ABS Nucleated RBC 0 10^3/ul; Eosinophil % 2.7 % (0-6); Hematocrit 34 % (42-52); Hemoglobin 11.8 g/dl (14.0-18.0); Lymphocyte % 8.8 % (25-47); Mean Corpuscular HGB Conc 34 g/dl (31-36); Mean Corpuscular Hemoglobin 30 pg (27-31); Mean Corpuscular Volume 87 fL (80-94); Mean Platelet Volume 8 um3 (7.4-10.4); Nucleated Red Blood Cells % 0; Platelet Count 227 10^3/ul (150-450); Red Blood Count 3.97 10^6/ul (4.0-5.4); Red Cell Distribution Width 14 % (10.5-15); White Blood Count 7.3 10^3/ul (3.5-10.8)
[2017-09-23 06:50] LABS: EGFR Non-African American 72.4 (>60)
[2017-09-23] MEDS: Insulin LISPRO* 1 UNITS UNIT SUBCUT SCH ×4 (07:37→22:20)
[2017-09-23] MEDS: NS 0.9% 1000 ML* 1,000 ML IV SCH ×2 (07:37→16:17)
[2017-09-23] MEDS: Atorvastatin* 40 MG TAB PO SCH (08:15)
[2017-09-23] MEDS: Omeprazole CAP* 20 MG PO SCH (08:15)
[2017-09-23] MEDS: Psyllium PAK PO SCH (08:15)
--- NOTE | 2017-09-23 14:50 | PN ---
Subjective Date of Service: 09/23/17 Interval History: Patient feels much better today. Significantly decreased fatigue since last night. Patient denies F/C, N/V, Abdominal pain, CP, SOB, dyuria, constipation, diarrhea, or other pain. Patient still feels like his mouth is dry. Patient's PCP called and stated that the and stated that they did not think he would be able to be discharged until Wednesday due to his weakness and her obligation to care for another dying patient at home. Family History: Unchanged from Admission Social History: Unchanged from Admission Past Medical History: Unchanged from Admission Objective Active Medications: Atorvastatin Calcium (Lipitor*) 40 mg PO DAILY [facility] Last Admin: 09/23/17 08:15 Dose: 40 mg Chlorpromazine HCl (Thorazine Tab*) 25 mg PO TID PRN PRN Reason: HICCUPS Last Admin: 09/23/17 13:52 Dose: 25 mg Dextrose (D50w Syringe 50 Ml*) 12.5 gm IV PUSH .FOR FS < 60 - SS PRN PRN Reason: FS < 60 Last Admin: 09/20/17 21:11 Dose: 12.5 gm Diphenoxylate HCl/Atropine (Lomotil Tab*) 1 tab PO QID PRN PRN Reason: DIARRHEA Heparin Sodium (Porcine) (Heparin Vial(*)) 5,000 units SUBCUT Q8HR [facility] Last Admin: 09/23/17 13:52 Dose: 5,000 units Sodium Chloride (Ns 0.9% 1000 Ml*) 1,000 mls @ 125 mls/hr IV PER RATE [facility] Last Admin: 09/23/17 07:37 Dose: 125 mls/hr Meropenem (Merrem 1 Gm Premix(*)) 1 gm in 50 mls @ 100 mls/hr IV Q8HR@0400,1200 ,2000 [facility] Last Admin: 09/23/17 11:33 Dose: 100 mls/hr Insulin Human Lispro (Humalog*) 0 - 5 units SUBCUT 0730,1130,1630,2100 [facility] PRN Reason: Protocol Last Admin: 09/23/17 11:34 Dose: Not Given Latanoprost (Xalatan 0.005%*) 1 drop BOTH EYES BEDTIME [facility] Last Admin: 09/22/17 21:20 Dose: 1 drop Lorazepam (Ativan Inj*) 0.5 mg IV PUSH Q4H PRN PRN Reason: ANXIETY Omeprazole (Prilosec Cap*) 20 mg PO DAILY [facility] PRN Reason: Protocol Last Admin: 09/23/17 08:15 Dose: 20 mg Ondansetron HCl (Zofran Inj*) 4 mg IV Q6H PRN PRN Reason: NAUSEA Oxybutynin Chloride (Ditropan Xl Tab*) 5 mg PO DAILY PRN; Protocol PRN Reason: Urinary frequency Psyllium Hydrophilic Mucilloid (Metamucil Sergio*) 1 pkt PO DAILY [facility] Last Admin: 09/23/17 08:15 Dose: 1 pkt Tramadol HCl (Ultram*) 50 mg PO Q6H PRN PRN Reason: PAIN Last Admin: 09/22/17 21:55 Dose: 50 mg Vital Signs - 8 hr 09/23/17 09/23/17 09/23/17 07:37 08:21 12:47 Temperature 97.1 F 97.9 F Pulse Rate 110 118 Respiratory 15 20 18 Rate Blood Pressure 131/89 110/74 (mmHg) O2 Sat by Pulse 96 99 Oximetry Oxygen Devices in Use Now: None Appearance: Patient is a 72yo male who appears stated age, has more color than yesterday, and is sitting in the bed in NAD. Eyes: No Scleral Icterus, PERRLA Ears/Nose/Mouth/Throat: NL Teeth, Lips, Gums, Clear Oropharnyx, Mucous Membranes Moist, - - Lips no longer chapped. Neck: NL Appearance and Movements; NL JVP, Trachea Midline Respiratory: Symmetrical Chest Expansion and Respiratory Effort, Clear to Auscultation Cardiovascular: NL Sounds; No Murmurs; No JVD, RRR, No Edema Abdominal: NL Sounds; No Tenderness; No Distention, No Hepatosplenomegaly Lymphatic: No Cervical Adenopathy Extremities: No Edema, No Clubbing, Cyanosis Skin: No Rash or Ulcers, No Nodules or Sclerosis Neurological: Alert and Oriented x 3, NL Sensation, NL Muscle Strength and Tone , - - CN II-XII intact. Result Diagrams: 09/23/17 05:58 09/23/17 05:58 Additional Lab and Data: Lab Results Microbiology and Other Data: Microbiology 09/22/17 14:00 Stool Gross Appearance - Final Stool Assess/Plan/Problems-Billing Assessment: Patient is a 72yo male with a PMH significant for recurrent UTI, Urge urinary incontinence, DMII, HTN, HLD, who recently returned from a trip to [place] and has general illness with 10 pound weight loss, intractable hiccups, and a UTI who is being treated with Meropenum for ESBL. - Patient Problems (1) Illness Current Visit: Yes Status: Acute Code(s): R69 - ILLNESS, UNSPECIFIED SNOMED Code(s): 70945236 Comment: Appreciate ID consult. No obvious cause of illness. Leukocytosis improved. Differential includes Typhoid, Dengue, Malaria. Will monitor labs, HIV negative , Blood Smear x3 Negative. ESBL UTI Grew in Urine, susceptible only to Meropenum and Gentamycin. Patient improved greatly overnight with only 2 doses of meropenum. (2) Hiccups Current Visit: Yes Status: Acute Code(s): R06.6 - HICCOUGH SNOMED Code(s) : 14855330 Comment: Intractable and causing significant distress. Thorazine especially helpful with hiccups for full 8 hour duration. Will continue to monitor. CT of the chest negative for diaphragmatic irritation. (3) Diabetes Current Visit: Yes Status: Acute Code(s): E11.9 - TYPE 2 DIABETES MELLITUS WITHOUT COMPLICATIONS SNOMED Code(s): 25624599 Comment: Lispro SSI, Moderately well controlled FSBG. well controlled AM glucose, basal insulin not indicated at this time. (4) HLD (hyperlipidemia) Current Visit: Yes Status: Acute Code(s): E78.5 - HYPERLIPIDEMIA, UNSPECIFIED SNOMED Code(s): 30010714 Comment: Continue Lipitor (5) DVT prophylaxis Current Visit: Yes Status: Acute Code(s): KQN8110 - SNOMED Code(s): 826857340 Comment: Heparin SubQ (6) Full code status Current Visit: Yes Status: Acute Code(s): Z78.9 - OTHER SPECIFIED HEALTH STATUS SNOMED Code(s): 289004597 Status and Disposition: Patient is admitted inpatient for unknown illness and ESBL UTI on Meropenum.
[2017-09-23] MEDS: LATANOPROST 0.005% BOTH EYES SCH (21:03)
[2017-09-23] MEDS: traMADol TAB* 50 MG PO PRN (22:17)
[2017-09-24] MEDS: NS 0.9% 1000 ML* 1,000 ML IV SCH ×2 (01:03→09:40)
[2017-09-24] MEDS: Meropenem 1 GM PREMIX(*) 1 GM/50 ML BAG IV SCH ×3 (03:32→20:25)
[2017-09-24] MEDS: Heparin VIAL(*) 5000 UNITS/ML VIAL (FIVE THOUSAND) SUBCUT SCH ×3 (06:11→21:13)
[2017-09-24] MEDS: Insulin LISPRO* 1 UNITS UNIT SUBCUT SCH ×4 (08:05→20:41)
[2017-09-24 09:19] LABS: ABS Basophils 0 10^3/ul (0-0.2); ABS Eosinophils 0.2 10^3/ul (0-0.6); ABS Lymphocytes 0.8 10^3/ul (1.0-4.8); ABS Monocytes 0.4 10^3/ul (0-0.8); ABS Neutrophils 5.1 10^3/ul (1.5-7.7); ABS Nucleated RBC 0 10^3/ul; Eosinophil % 2.4 % (0-6); Hematocrit 37 % (42-52); Hemoglobin 12.5 g/dl (14.0-18.0); Lymphocyte % 12.4 % (25-47); Mean Corpuscular HGB Conc 34 g/dl (31-36); Mean Corpuscular Hemoglobin 29 pg (27-31); Mean Corpuscular Volume 86 fL (80-94); Mean Platelet Volume 8 um3 (7.4-10.4); Nucleated Red Blood Cells % 0; Platelet Count 252 10^3/ul (150-450); Red Blood Count 4.28 10^6/ul (4.0-5.4); Red Cell Distribution Width 14 % (10.5-15); White Blood Count 6.5 10^3/ul (3.5-10.8)
[2017-09-24 09:35] LABS: EGFR Non-African American 73.2 (>60)
[2017-09-24] MEDS: Omeprazole CAP* 20 MG PO SCH (09:41)
[2017-09-24] MEDS: Atorvastatin* 40 MG TAB PO SCH (09:41)
[2017-09-24] MEDS: Psyllium PAK PO SCH (09:41)
--- NOTE | 2017-09-24 13:07 | PN ---
Subjective Date of Service: 09/24/17 Interval History: Patient states he feels better again today. Patient complains of fatigue and dry mouth, but states these are improved. Patient denies F/C, N/V, abdominal pain, CP, SOB, Dysuria, dizziness, headache, or other pain. Family History: Unchanged from Admission Social History: Unchanged from Admission Past Medical History: Findings - Patient states he has a history of prostatitis from the mid 80s. Objective Active Medications: Atorvastatin Calcium (Lipitor*) 40 mg PO DAILY [facility] Last Admin: 09/24/17 09:41 Dose: 40 mg Chlorpromazine HCl (Thorazine Tab*) 25 mg PO TID PRN PRN Reason: HICCUPS Last Admin: 09/23/17 22:17 Dose: 25 mg Dextrose (D50w Syringe 50 Ml*) 12.5 gm IV PUSH .FOR FS < 60 - SS PRN PRN Reason: FS < 60 Last Admin: 09/20/17 21:11 Dose: 12.5 gm Diphenoxylate HCl/Atropine (Lomotil Tab*) 1 tab PO QID PRN PRN Reason: DIARRHEA Heparin Sodium (Porcine) (Heparin Vial(*)) 5,000 units SUBCUT Q8HR [facility] Last Admin: 09/24/17 06:11 Dose: 5,000 units Sodium Chloride (Ns 0.9% 1000 Ml*) 1,000 mls @ 125 mls/hr IV PER RATE [facility] Last Admin: 09/24/17 09:40 Dose: 125 mls/hr Meropenem (Merrem 1 Gm Premix(*)) 1 gm in 50 mls @ 100 mls/hr IV Q8HR@0400,1200 ,2000 [facility] Last Admin: 09/24/17 03:32 Dose: 100 mls/hr Insulin Human Lispro (Humalog*) 0 - 5 units SUBCUT 0730,1130,1630,2100 [facility] PRN Reason: Protocol Last Admin: 09/24/17 08:05 Dose: Not Given Latanoprost (Xalatan 0.005%*) 1 drop BOTH EYES BEDTIME [facility] Last Admin: 09/23/17 21:03 Dose: 1 drop Lorazepam (Ativan Inj*) 0.5 mg IV PUSH Q4H PRN PRN Reason: ANXIETY Omeprazole (Prilosec Cap*) 20 mg PO DAILY [facility] PRN Reason: Protocol Last Admin: 09/24/17 09:41 Dose: 20 mg Ondansetron HCl (Zofran Inj*) 4 mg IV Q6H PRN PRN Reason: NAUSEA Oxybutynin Chloride (Ditropan Xl Tab*) 5 mg PO DAILY PRN; Protocol PRN Reason: Urinary frequency Psyllium Hydrophilic Mucilloid (Metamucil Sergio*) 1 pkt PO DAILY [facility] Last Admin: 09/24/17 09:41 Dose: 1 pkt Tramadol HCl (Ultram*) 50 mg PO Q6H PRN PRN Reason: PAIN Last Admin: 09/23/17 22:17 Dose: 50 mg Vital Signs - 8 hr 09/24/17 09/24/17 09/24/17 06:10 08:00 08:28 Temperature 97.5 F Pulse Rate 92 Respiratory 16 16 18 Rate Blood Pressure 113/74 (mmHg) O2 Sat by Pulse 97 Oximetry Oxygen Devices in Use Now: None Appearance: Patient is a 72yo male who appears stated age and is sitting in the bed in [facility]. Eyes: No Scleral Icterus, PERRLA Ears/Nose/Mouth/Throat: NL Teeth, Lips, Gums, Clear Oropharnyx, Mucous Membranes Moist Neck: NL Appearance and Movements; NL JVP, Trachea Midline Respiratory: Symmetrical Chest Expansion and Respiratory Effort, Clear to Auscultation Cardiovascular: NL Sounds; No Murmurs; No JVD, RRR, No Edema Abdominal: NL Sounds; No Tenderness; No Distention, No Hepatosplenomegaly, - - No CVA or Suprapubic tenderness. Lymphatic: No Cervical Adenopathy Extremities: No Edema Skin: No Rash or Ulcers Neurological: Alert and Oriented x 3, NL Sensation, NL Muscle Strength and Tone , - - CN II-XII intact. Result Diagrams: 09/24/17 09:05 09/24/17 09:05 Additional Lab and Data: Lab Results Microbiology and Other Data: Microbiology 09/22/17 14:00 Stool Gross Appearance - Final Stool Assess/Plan/Problems-Billing Assessment: Patient is a 72yo male with a PMH significant for recurrent UTI, Urge urinary incontinence, DMII, HTN, HLD, who recently returned from a trip to [place] and has general illness with 10 pound weight loss, intractable hiccups, and a UTI who is being treated with Meropenum for ESBL. - Patient Problems (1) Prostatitis Current Visit: Yes Status: Acute Code(s): N41.9 - INFLAMMATORY DISEASE OF PROSTATE, UNSPECIFIED SNOMED Code(s): 5786180 Comment: Appreciate ID consult. ESBL UTI Grew in Urine, susceptible only to Meropenum and Gentamycin. Patient improved greatly overnight and continues to improve. Plan for 3 total weeks of Meropenum/Ertapenum. PICC line ordered. Patient would like to complete this through the infusion center. (2) Sepsis Current Visit: Yes Status: Acute Comment: Now resolved. Patient met SIRS criteria with tachycardia, tachypnea, leukocytosis, and hypotension on admission. Patient also had a SOFA score of 3 on admission. (3) Hiccups Current Visit: Yes Status: Acute Code(s): R06.6 - HICCOUGH SNOMED Code(s) : 10873517 Comment: Controlled. Thorazine especially helpful with hiccups for full 8 hour duration. Will continue to monitor. CT of the chest negative for diaphragmatic irritation. (4) Diabetes Current Visit: Yes Status: Acute Code(s): E11.9 - TYPE 2 DIABETES MELLITUS WITHOUT COMPLICATIONS SNOMED Code(s): 73747572 Comment: Lispro SSI, Moderately well controlled FSBG. well controlled AM glucose, basal insulin not indicated at this time. (5) HLD (hyperlipidemia) Current Visit: Yes Status: Acute Code(s): E78.5 - HYPERLIPIDEMIA, UNSPECIFIED SNOMED Code(s): 00300366 Comment: Continue Lipitor (6) DVT prophylaxis Current Visit: Yes Status: Acute Code(s): YUS3010 - SNOMED Code(s): 666546495 Comment: Heparin SubQ (7) Full code status Current Visit: Yes Status: Acute Code(s): Z78.9 - OTHER SPECIFIED HEALTH STATUS SNOMED Code(s): 218335391 Status and Disposition: Patient is admitted inpatient for unknown illness and ESBL UTI on carbapenum. Will discharge when able to have infusions at infusion center per patient preference.
[2017-09-24] MEDS: LATANOPROST 0.005% BOTH EYES SCH (20:24)
[2017-09-24] MEDS: traMADol TAB* 50 MG PO PRN (21:01)
[2017-09-25] MEDS: LORazepam INJ* 2 MG/ML 1 ML VIAL IV PUSH PRN ×2 (03:28→22:38)
[2017-09-25] MEDS: Meropenem 1 GM PREMIX(*) 1 GM/50 ML BAG IV SCH ×3 (03:31→20:58)
[2017-09-25] MEDS: NS 0.9% 1000 ML* 1,000 ML IV SCH ×3 (03:31→21:00)
[2017-09-25] MEDS: Heparin VIAL(*) 5000 UNITS/ML VIAL (FIVE THOUSAND) SUBCUT SCH ×3 (06:17→21:02)
[2017-09-25] MEDS: Insulin LISPRO* 1 UNITS UNIT SUBCUT SCH ×4 (08:42→21:36)
[2017-09-25] MEDS: Psyllium PAK PO SCH (08:43)
[2017-09-25] MEDS: Atorvastatin* 40 MG TAB PO SCH (08:51)
[2017-09-25] MEDS: Omeprazole CAP* 20 MG PO SCH (08:51)
--- NOTE | 2017-09-25 11:16 | PN ---
Subjective Date of Service: 09/25/17 Interval History: Patient seen and examined. Appears very anxious about PICC line, has lots of questions about duration of atbx treatment time. Discussed at length regarding his response to treatment and other factors. Patient denies chest pain, SOB, no abdominal pain, no urinary complaints, no n/v/d, no fevers or chills. C/O small abrasion to right AC from tape from IV. Otherwise, no acute overnight events. Family History: Unchanged from Admission Social History: Unchanged from Admission Past Medical History: Findings - Patient states he has a history of prostatitis from the mid 80s. Objective Active Medications: Atorvastatin Calcium (Lipitor*) [address] [facility] Last Admin: 09/25/17 08:51 Dose: 40 mg Chlorpromazine HCl (Thorazine Tab*) 25 mg PO TID PRN PRN Reason: HICCUPS Last Admin: 09/23/17 22:17 Dose: 25 mg Dextrose (D50w Syringe 50 Ml*) 12.5 gm IV PUSH .FOR FS < 60 - SS PRN PRN Reason: FS < 60 Last Admin: 09/20/17 21:11 Dose: 12.5 gm Diphenoxylate HCl/Atropine (Lomotil Tab*) 1 tab PO QID PRN PRN Reason: DIARRHEA Heparin Sodium (Porcine) (Heparin Vial(*)) 5,[address] [facility] Last Admin: 09/25/17 06:17 Dose: 5,000 units Heparin Sodium (Porcine) (Heparin Flush Picc/Ml/Cvc(*)) 1 - 3 ml FLUSH 0600, 1800 [facility] PRN Reason: Protocol Last Admin: 09/25/17 06:13 Dose: 1 ml Sodium Chloride (Ns 0.9% 1000 Ml*) 1,000 mls @ 125 mls/hr IV PER RATE [facility] Last Admin: 09/25/17 03:31 Dose: 125 mls/hr Meropenem (Merrem 1 Gm Premix(*)) 1 gm in 50 mls @ 100 mls/hr IV Q8HR@0400,1200 ,2000 [facility] Last Admin: 09/25/17 03:31 Dose: 100 mls/hr Insulin Human Lispro (Humalog*) 0 - 5 units SUBCUT 0730,1130,1630,2100 [facility] PRN Reason: Protocol Last Admin: 09/25/17 08:42 Dose: Not Given Latanoprost (Xalatan 0.005%*) 1 drop [address]OTH EYES BEDTIME [facility] Last Admin: 09/24/17 20:24 Dose: 1 drop Lorazepam (Ativan Inj*) 0.5 mg IV PUSH Q4H PRN PRN Reason: ANXIETY Last Admin: 09/25/17 03:28 Dose: 0.5 mg Omeprazole (Prilosec Cap*) 20 mg PO DAILY@0730 [facility] PRN Reason: Protocol Last Admin: 09/25/17 08:51 Dose: 20 mg Ondansetron HCl (Zofran Inj*) 4 mg IV Q6H PRN PRN Reason: NAUSEA Oxybutynin Chloride (Ditropan Xl Tab*) 5 mg PO DAILY PRN; Protocol PRN Reason: Urinary frequency Psyllium Hydrophilic Mucilloid (Metamucil Sergio*) [address] [facility] Last Admin: 09/25/17 08:43 Dose: Not Given Tramadol HCl (Ultram*) 50 mg PO Q6H PRN PRN Reason: PAIN Last Admin: 09/24/17 21:01 Dose: 50 mg Vital Signs - 8 hr 09/25/17 09/25/17 09/25/17 03:28 04:09 05:04 Temperature 97.7 F Pulse Rate 95 Respiratory 16 16 16 Rate Blood Pressure 117/85 (mmHg) O2 Sat by Pulse 95 Oximetry 09/25/17 09/25/17 09/25/17 05:05 08:00 08:01 Temperature 97.9 F Pulse Rate 104 Respiratory 16 18 24 Rate Blood Pressure 134/93 (mmHg) O2 Sat by Pulse 100 Oximetry Oxygen Devices in Use Now: None Eyes: No Scleral Icterus, PERRLA Ears/Nose/Mouth/Throat: NL Teeth, Lips, Gums, Mucous Membranes Moist Neck: NL Appearance and Movements; NL JVP, Trachea Midline Respiratory: Symmetrical Chest Expansion and Respiratory Effort, Clear to Auscultation Cardiovascular: NL Sounds; No Murmurs; No JVD, No Edema Abdominal: NL Sounds; No Tenderness; No Distention Extremities: No Edema, No Clubbing, Cyanosis Skin: No Rash or Ulcers Neurological: Alert and Oriented x 3, NL Sensation, NL Muscle Strength and Tone Nutrition: Taking PO's Result Diagrams: 09/24/17 09:05 09/24/17 09:05 Additional Lab and Data: Lab Results Microbiology and Other Data: Microbiology 09/22/17 14:00 Stool Gross Appearance - Final Stool Microbiology 09/20/17 08:30 Aerobic Blood Culture - Final Blood Venous No Growth Day 5 Anaerobic Blood Culture - Final No Growth Day 5 09/20/17 08:18 Aerobic Blood Culture - Final Blood Venous No Growth Day 5 Anaerobic Blood Culture - Final No Growth Day 5 09/22/17 14:00 Stool Culture - Final Stool Stool Gross Appearance - Final Shiga Toxin I & II - Final Negative Shiga Toxin 1 & 2 Cryptosporidium/Giardia - Final Neg Cryptosporidium/Giardia Diagnostic Imaging: Patient Name: SANGEETA LARIOS Medical Record#: [id number] Ordering Physician: Adrian LUEVANO Acct.#: [id number] : 1945 Age: 72 Sex: M Location: [address] [place] [address] - MEDICAL/TELEMETRY Exam Date: 09/21/171900 ADM Status: ADM IN Order Information: CT CHEST W/O Accession Number: [id number] CPT: 58945 INDICATION: Intractable hiccups. Dehydration. Elevated troponin. COMPARISON: September 20, 2017 CT abdomen. TECHNIQUE: Multidetector CT images were obtained from the lung apices to the upper abdomen. Evaluation of the viscera is limited without IV contrast. REPORT: Negative for diaphragmatic elevation. Small calcified granuloma at the LEFT lung base. Small bilateral dependent pleural effusions with proportional compressive atelectasis. Negative for thoracic lymphadenopathy, cardiomegaly, pericardial effusion. Small hiatal hernia. Limited images through the upper abdomen are remarkable for prior cholecystectomy. Negative for suspicious thoracic osseous lesions. IMPRESSION: Small bilateral dependent pleural effusions with mild proportional basilar atelectasis. <Electronically signed by Guillaume Valdez MD in OV> 09/21/172002 Dictated By: Guillaume Valdez MD Dictated Date/Time: 09/21/172002 Transcribed Date/Time: 09/21/171957 Copy to: CC:Heather Howard DO; Orlando Garza MD; Geraldine Jaeger MD; Adrian LUEVANO Imaging - [facility] Imaging - [facility] Imaging - [facility] [id number] [place] [id number] ph ([phone]) ph ([phone]) ph ([phone]) 1 of 1 Assess/Plan/Problems-Billing Assessment: This is a 72 year old male with PMHx of DMII, HTN and HLD with recent overseas travel to [facility], that presents to the ER with 10lb weight loss, general malaise, intractable hiccups with initial work up unclear for etiology. He is responding to IV meropenem and per ID may likely be ESBL prostatitis/UTI. - Patient Problems (1) DVT prophylaxis Code(s): RSX1514 - SNOMED Code(s): 513537899 Comment: - Heparin SubQ (2) Diabetes Code(s): E11.9 - TYPE 2 DIABETES MELLITUS WITHOUT COMPLICATIONS SNOMED Code(s) : 53519154 Comment: - Continue lispro SSI, - Slightly labile sugars likely 2/2 infection and immobility (3) Full code status Code(s): Z78.9 - OTHER SPECIFIED HEALTH STATUS SNOMED Code(s): 838672248 (4) HLD (hyperlipidemia) Code(s): E78.5 - HYPERLIPIDEMIA, UNSPECIFIED SNOMED Code(s): 02786057 Comment: - Continue Lipitor (5) Hiccups Code(s): R06.6 - HICCOUGH SNOMED Code(s): 46945989 Comment: - Now resolved - CT negative for diaphragmatic irritation - Thorazine if needed (6) Prostatitis Code(s): N41.9 - INFLAMMATORY DISEASE OF PROSTATE, UNSPECIFIED SNOMED Code(s) : 1401917 Comment: - ID following - ESBL in urine per micro - Continue meropenem for a total of 21 days therapy - PICC inserted, will continue outpatient infusion to start Wednesday (7) Sepsis Comment: - Resolved - Mild tachycardia, likely anxiety, does not appear septic - Leukocytosis resolved - BP stable - Afebrile - Follow cultures Status and Disposition: Remain inpatient until Wednesday then outpatient infusion daily. Counseling and/or Coordination of Care Minutes: Coordinated with patient and staff.
[2017-09-25] MEDS: LATANOPROST 0.005% BOTH EYES SCH (22:37)
[2017-09-26] MEDS: Meropenem 1 GM PREMIX(*) 1 GM/50 ML BAG IV SCH ×3 (03:28→20:40)
[2017-09-26] MEDS: NS 0.9% 1000 ML* 1,000 ML IV SCH (04:46)
[2017-09-26] MEDS: Heparin VIAL(*) 5000 UNITS/ML VIAL (FIVE THOUSAND) SUBCUT SCH ×3 (06:24→20:48)
[2017-09-26] MEDS: Omeprazole CAP* 20 MG PO SCH (07:33)
[2017-09-26] MEDS: Insulin LISPRO* 1 UNITS UNIT SUBCUT SCH ×4 (07:38→20:48)
[2017-09-26] MEDS ORDERED: ALPRAZolam TAB* 0.25 MG PO PRN (09:49)
[2017-09-26] MEDS: Atorvastatin* 40 MG TAB PO SCH (09:52)
--- NOTE | 2017-09-26 09:55 | PN ---
Subjective Date of Service: 09/26/17 Interval History: Patient seen and examined. No acute overnight events. Feeling well, still seems very nervous/anxious. No pain, afebrile, no chills, ambulatory. Discussed home infusion vs. infusion center. Will discuss with CM. Family History: Unchanged from Admission Social History: Unchanged from Admission Past Medical History: Findings - Patient states he has a history of prostatitis from the mid 80s. Objective Active Medications: Alprazolam (Xanax Tab*) 0.25 mg PO Q8H PRN PRN Reason: ANXIETY Stop: 09/27/17 23:59 Atorvastatin Calcium (Lipitor*) 40 mg PO DAILY [facility] Last Admin: 09/25/17 08:51 Dose: 40 mg Chlorpromazine HCl (Thorazine Tab*) 25 mg PO TID PRN PRN Reason: HICCUPS Last Admin: 09/23/17 22:17 Dose: 25 mg Dextrose (D50w Syringe 50 Ml*) 12.5 gm IV PUSH .FOR FS < 60 - SS PRN PRN Reason: FS < 60 Last Admin: 09/20/17 21:11 Dose: 12.5 gm Diphenoxylate HCl/Atropine (Lomotil Tab*) 1 tab PO QID PRN PRN Reason: DIARRHEA Heparin Sodium (Porcine) (Heparin Vial(*)) 5,000 units SUBCUT Q8HR [facility] Last Admin: 09/26/17 06:24 Dose: 5,000 units Heparin Sodium (Porcine) (Heparin Flush Picc/Ml/Cvc(*)) 1 - 3 ml FLUSH 0600, 1800 [facility] PRN Reason: Protocol Last Admin: 09/26/17 06:19 Dose: Not Given Meropenem (Merrem 1 Gm Premix(*)) 1 gm in 50 mls @ 100 mls/hr IV Q8HR@0400,1200 ,2000 [facility] Last Admin: 09/26/17 03:28 Dose: 100 mls/hr Insulin Human Lispro (Humalog*) 0 - 5 units SUBCUT 0730,1130,1630,2100 [facility] PRN Reason: Protocol Last Admin: 09/26/17 07:38 Dose: Not Given Latanoprost (Xalatan 0.005%*) 1 drop BOTH EYES BEDTIME [facility] Last Admin: 09/25/17 22:37 Dose: 1 drop Omeprazole (Prilosec Cap*) 20 mg PO DAILY@0730 [facility] PRN Reason: Protocol Last Admin: 09/26/17 07:33 Dose: 20 mg Ondansetron HCl (Zofran Inj*) 4 mg IV Q6H PRN PRN Reason: NAUSEA Oxybutynin Chloride (Ditropan Xl Tab*) 5 mg PO DAILY PRN; Protocol PRN Reason: Urinary frequency Psyllium Hydrophilic Mucilloid (Metamucil Sergio*) 1 pkt PO DAILY [facility] Last Admin: 09/25/17 08:43 Dose: Not Given Tramadol HCl (Ultram*) 50 mg PO Q6H PRN PRN Reason: PAIN Last Admin: 09/24/17 21:01 Dose: 50 mg Vital Signs - 8 hr 09/26/17 09/26/17 09/26/17 04:40 07:19 07:57 Temperature 98.3 F 97.6 F Pulse Rate 91 109 Respiratory 18 16 18 Rate Blood Pressure 116/83 115/79 (mmHg) O2 Sat by Pulse 96 95 Oximetry Oxygen Devices in Use Now: None Appearance: Alert, mildly anxious at baseline Eyes: PERRLA Ears/Nose/Mouth/Throat: NL Teeth, Lips, Gums, Mucous Membranes Moist Neck: NL Appearance and Movements; NL JVP Respiratory: Symmetrical Chest Expansion and Respiratory Effort, Clear to Auscultation Cardiovascular: NL Sounds; No Murmurs; No JVD, RRR Abdominal: NL Sounds; No Tenderness; No Distention, No Hepatosplenomegaly Extremities: No Edema, No Clubbing, Cyanosis Skin: No Rash or Ulcers Neurological: Alert and Oriented x 3, NL Sensation, NL Gait, NL Muscle Strength and Tone Lines/Tubes/Other Access: Clean, Dry and Intact PICC Line Nutrition: Taking PO's Result Diagrams: 09/24/17 09:05 09/24/17 09:05 Additional Lab and Data: Lab Results Microbiology and Other Data: Microbiology 09/22/17 14:00 Stool Gross Appearance - Final Stool Microbiology 09/20/17 08:30 Aerobic Blood Culture - Final Blood Venous No Growth Day 5 Anaerobic Blood Culture - Final No Growth Day 5 09/20/17 08:18 Aerobic Blood Culture - Final Blood Venous No Growth Day 5 Anaerobic Blood Culture - Final No Growth Day 5 09/22/17 14:00 Stool Culture - Final Stool Stool Gross Appearance - Final Shiga Toxin I & II - Final Negative Shiga Toxin 1 & 2 Cryptosporidium/Giardia - Final Neg Cryptosporidium/Giardia Diagnostic Imaging: Patient Name: SANGEETA LARIOS Medical Record#: [id number] Ordering Physician: Adrian LUEVANO Acct.#: [id number] : 1945 Age: 72 Sex: M Location: [address] [place] [address] MEDICAL/TELEMETRY Exam Date: 09/21/171900 ADM Status: ADM IN Order Information: CT CHEST W/O Accession Number: [id number] CPT: 55274 INDICATION: Intractable hiccups. Dehydration. Elevated troponin. COMPARISON: September 20, 2017 CT abdomen. TECHNIQUE: Multidetector CT images were obtained from the lung apices to the upper abdomen. Evaluation of the viscera is limited without IV contrast. REPORT: Negative for diaphragmatic elevation. Small calcified granuloma at the LEFT lung base. Small bilateral dependent pleural effusions with proportional compressive atelectasis. Negative for thoracic lymphadenopathy, cardiomegaly, pericardial effusion. Small hiatal hernia. Limited images through the upper abdomen are remarkable for prior cholecystectomy. Negative for suspicious thoracic osseous lesions. IMPRESSION: Small bilateral dependent pleural effusions with mild proportional basilar atelectasis. <Electronically signed by Guillaume Vladez MD in [facility]> 09/21/172002 Dictated By: Guillaume Valdez MD Dictated Date/Time: 09/21/172002 Transcribed Date/Time: 09/21/171957 Copy to: CC:Heather Howard DO; Orlando Garza MD; Geraldine Jaeger MD; Adrian LUEVANO Imaging - [facility] Imaging - [facility] [address] [address] ph ([phone]) ph ([phone]) ph ([phone]) 1 of 1 Assess/Plan/Problems-Billing Assessment: This is a 72 year old male with PMHx of DMII, HTN and HLD with recent overseas travel to [place], that presents to the ER with 10lb weight loss, general malaise, intractable hiccups with initial work up unclear for etiology. He is responding to IV meropenem and per ID may likely be ESBL prostatitis/UTI. - Patient Problems (1) DVT prophylaxis Code(s): IJZ9549 - SNOMED Code(s): 001780358 Comment: - Heparin SubQ (2) Diabetes Code(s): E11.9 - TYPE 2 DIABETES MELLITUS WITHOUT COMPLICATIONS SNOMED Code(s) : 96588817 Comment: - Continue lispro SSI, - Slightly labile sugars likely 2/2 infection and immobility but markedly improved last 24 hours (3) Full code status Code(s): Z78.9 - OTHER SPECIFIED HEALTH STATUS SNOMED Code(s): 224600905 (4) HLD (hyperlipidemia) Code(s): E78.5 - HYPERLIPIDEMIA, UNSPECIFIED SNOMED Code(s): 19993892 Comment: - Continue Lipitor (5) Hiccups Code(s): R06.6 - HICCOUGH SNOMED Code(s): 79824672 Comment: - Now resolved - CT negative for diaphragmatic irritation - Thorazine if needed (6) Prostatitis Code(s): N41.9 - INFLAMMATORY DISEASE OF PROSTATE, UNSPECIFIED SNOMED Code(s) : 4183926 Comment: - ID following - ESBL in urine per micro - Continue meropenem for a total of 21 days therapy - PICC inserted, will continue outpatient vx home infusion to start Wednesday, case managment to coordinate (7) Sepsis Comment: - Resolved - Mild tachycardia, likely anxiety, does not appear septic - Leukocytosis resolved - BP stable - Afebrile - Follow cultures Status and Disposition: DC home when infusion can be set up for home vs infusion center, likely tomorrow. Counseling and/or Coordination of Care Minutes: coordinated with patient and RN.
[2017-09-26] MEDS: Psyllium PAK PO SCH (11:04)
[2017-09-26] MEDS: LATANOPROST 0.005% BOTH EYES SCH (20:41)
[2017-09-27 03:21] VITALS: BP 102/76
[2017-09-27] MEDS: Meropenem 1 GM PREMIX(*) 1 GM/50 ML BAG IV SCH ×2 (04:19→11:49)
[2017-09-27] MEDS: Heparin VIAL(*) 5000 UNITS/ML VIAL (FIVE THOUSAND) SUBCUT SCH (05:17)
[2017-09-27] MEDS: Atorvastatin* 40 MG TAB PO SCH (08:08)
[2017-09-27] MEDS: Psyllium PAK PO SCH (08:08)
[2017-09-27] MEDS: Omeprazole CAP* 20 MG PO SCH (08:08)
[2017-09-27] MEDS: Insulin LISPRO* 1 UNITS UNIT SUBCUT SCH ×2 (08:08→11:49)
--- NOTE | 2017-09-28 04:18 | DS ---
CC: Dr. Geraldine Jaeger; Dr. David Cox * DISCHARGE SUMMARY: DATE OF ADMISSION: 09/21/17 DATE OF DISCHARGE: 09/27/17 DISCHARGE DIAGNOSES: 1. Acute bacterial prostatitis. 2. Sepsis present on admission, resolved. 3. Persistent hiccups, resolved. CHRONIC DIAGNOSES: 1. Anxiety. 2. Irritable bowel syndrome. 3. Diabetes mellitus. 4. Hypertension. 5. Hyperlipidemia. 6. Glaucoma. 7. Gastroesophageal reflux disease. 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 Because of persistent symptoms, he came to the hospital on September 20. Please see his history and physical from that day for further details. His workup here included a chest x-ray that was negative, a chest CT on 09/21/17 that showed small bilateral dependent pleural effusions. 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 Because of recent travel he had malaria preparations sent x3 which were all negative. Blood cultures on admission were negative. He had had some loose stools, a stool culture and shiga toxin, cryptosporidium and Giardia were negative. Urinalysis on admission showed nitrites and leukocyte esterase as well as 1+ blood. The urine culture grew greater than 100,000 colonies of E. Coli which was an ESBL remote operations producer and was resistant to fluoroquinolones and Bactrim as well. He was initially treated with ceftriaxone and IV hydration. His white count that started out at 15,000 came down during his stay. When the urine culture and sensitivity came back he was switched to meropenem. His symptoms have resolved with 5 days of antibiotics. He is going to be treated for presumed prostatitis. He had a PICC line placed in the right upper extremity. He is going to receive ertapenem 1 g a day to complete 21 days at the outpatient infusion center at [facility]. Of note, his urinary frequency has resolved here as well. Issues for followup: 1. Weekly blood test, CBC, CMP, CRP while he is on IV antibiotics which I will follow up and see him in the office in 1 to 2 weeks. 2. He has an incidental finding of 2 aneurysms. He should have Vascular Surgery followup for that finding. 3. He will have a followup appointment with Dr. Jaeger on 09/29/17 at 11:40 in the morning. He will resume his home medications in addition to ertapenem as follows: 1. Ertapenem 1 g IV once a day for 21 days total to be completed on 10/14/17. 2. Latanoprost 0.005% one drop both eyes at bedtime. 3. Psyllium 1 packet by mouth daily. 4. Tramadol 50 mg by mouth every 6 hours as needed for pain. 5. Ketoconazole 2% cream topically twice daily as needed. 6. Tolterodine 2 mg by mouth daily as needed. 7. Lomotil 1 tablet by mouth 4 times a day as needed for diarrhea. 8. Xyzal tablet 5 mg by mouth daily as needed. 9. Rosuvastatin 20 mg by mouth daily. 10. Lorazepam 1 mg tablet by mouth 3 times a day as needed for anxiety. 11. Brimonidine 1 drop both eyes 3 times a day. 12. Glipizide 5 mg by mouth daily. 13. Indapamide 1.25 mg by mouth daily. 14. Metformin 850 mg by mouth twice a day. 15. Losartan 100 mg by mouth daily. 16. Omeprazole 40 mg by mouth daily. I spent 60 minutes preparing his discharge paper work, more than half face to face discussing discharge plans. [id number]/CPS #: [id number] Sarah- [id number]/CPS #: [id number] TRAY
--- NOTE | 2017-09-28 05:18 | DS ---
DISCHARGE SUMMARY: ADDENDUM: I spent greater than 30 minutes preparing his discharge paper work. [id number]/CPS #: [id number] TRAY
== END 2017-09-27 13:10 | disposition home or self-care (01) | DRG 872 ==
LOC: ED 07:58 → MEDTELE 14:14 → OBSVTOIN 09-21 16:35 → MEDTELE 09-22 17:08
PROVIDERS: ADMIT Hospitalist; ATTEND Internal Medicine
PROC: 05HY33Z Insertion of Infusion Device into Upper Vein, Percutaneous Approach (ICD-10-PCS; principal; 2017-09-24)
DX: A41.9 Sepsis, unspecified organism (principal); N17.9 Acute kidney failure, unspecified; I72.8 Aneurysm of other specified arteries; N39.0 Urinary tract infection, site not specified; E11.9 Type 2 diabetes mellitus without complications; E87.1 Hypo-osmolality and hyponatremia; E83.42 Hypomagnesemia; B96.20 Unspecified Escherichia coli [E. coli] as the cause of diseases classified elsewhere; E78.5 Hyperlipidemia, unspecified; N41.0 Acute prostatitis; Z68.1 Body mass index [BMI] 19.9 or less, adult; J98.11 Atelectasis; F41.9 Anxiety disorder, unspecified; I10 Essential (primary) hypertension; R06.6 Hiccough; K58.9 Irritable bowel syndrome, unspecified; H40.9 Unspecified glaucoma; K21.9 Gastro-esophageal reflux disease without esophagitis; R74.8 Abnormal levels of other serum enzymes; R63.4 Abnormal weight loss; E86.0 Dehydration; E87.6 Hypokalemia; M54.89 Other dorsalgia; Z79.84 Long term (current) use of oral hypoglycemic drugs; Z79.899 Other long term (current) drug therapy; Z88.2 Allergy status to sulfonamides; Z88.8 Allergy status to other drugs, medicaments and biological substances; Z82.49 Family history of ischemic heart disease and other diseases of the circulatory system; Z83.3 Family history of diabetes mellitus; Z80.0 Family history of malignant neoplasm of digestive organs
CPT/HCPCS: 36415; 71010; 71250; 74176; 80048; 80053; 81003; 81015; 83605; 83735; 84484; 85025; 86703; 87015; 87040; 87045; 87046; 87077; 87086; 87177; 87181; 87186; 87207; 87209; 87328; 87329; 87798; 87899; 93005; 96374; 96375; 96376; 99285; A9270-GY; C1751; G0378; J0696; J1644; J2060; J2185; J2405; J3475; J3480